=== PATIENT | male | born 1990 | race Caucasian/White ===

== ENCOUNTER 2017-06-04 18:12 | Emergency (ER) | payer SELFPAY ==
[2017-06-04] MEDS ORDERED: Ketorolac INJ* 30 MG/ML 1 ML VIAL IM ONE (20:35)
[2017-06-04] MEDS ORDERED: Cyclobenzaprine TAB* 10 MG PO ONE (20:36)
--- NOTE | 2017-06-04 21:17 | UC ---
Epi Bolivar Stephanie, scribed for Taniya Salgado MD on 06/04/17 at 2042 . Back Pain HPI - HPI Summary HPI Summary: The pt is a 27 y/o M presenting to with lower back pain that began yesterday at 06/03/17 s/p lifting heavy boxes (50-60 lbs) while at work. Pt was bending at his waist and stood up straight when he picked up the box. Pt feels muscles tightening when sitting. Pain is discrete at the lower back and is described as sharp and as an ache. No radiation no leg pain. No changes to bowel or bladder. The pt denies fever, chills, nausea, gluteal pain, vomiting, changes in BM and changes in sensation. The pain does not radiate into the lower extremities. Aggravating factors include change in position. The pt has never been treated for back pain. Took Motrin this morning Pt's medications reviewed at this visit - History of Current Complaint Chief Complaint: UCBackPain Stated Complaint: INJURED TAILBONE WC Time Seen by Provider: 06/04/17 20:10 Hx Obtained From: Patient Onset/Duration: Sudden Onset - post lifting heavy boxes, Lasting Days - 1, Still Present Timing: Constant Pain Intensity: 5 Pain Scale Used: 0-10 Numeric Back Pain: Is Discrete @ - lower back/tailbone Character: Sharp, Aching Aggravating Factor(s): Movement, Lifting, Bending, Walking Alleviating Factor(s): Nothing Associated Signs And Symptoms: Negative: Fever, Bowel Incontinence - Allergies/Home Medications Allergies/Adverse Reactions: Allergies Allergy/AdvReac Type Severity Reaction Status Date / Time No Known Allergies Allergy Verified 06/04/17 18:47 PMH/Surg Hx/FS Hx/Imm Hx Previously Healthy: Yes - Pt denies all past medical history - Surgical History Surgical History: None - Family History Known Family History: Positive: Unknown - The pt denies all family history when asked. - Social History Occupation: Employed Part-time Lives: With Family Alcohol Use: None Substance Use Type: None Smoking Status (MU): Light Every Day Tobacco Smoker Type: Cigars Review of Systems Constitutional: Negative Musculoskeletal: Other: - lower back pain All Other Systems Reviewed And Are Negative: Yes Physical Exam Triage Information Reviewed: Yes Appearance: Well-Nourished, Pain Distress - discomfort with movement Vital Signs: Initial Vital Signs Temp 98.5 F 06/04/17 18:48 Pulse 80 06/04/17 18:48 Resp 16 06/04/17 18:48 BP 120/74 06/04/17 18:48 Pulse Ox 100 06/04/17 18:48 Vital Signs Reviewed: Yes Eye Exam: Normal Eyes: Positive: Conjunctiva Clear ENT Exam: Normal ENT: Positive: Normal ENT inspection, Hearing grossly normal, TMs normal Dental Exam: Normal Neck exam: Normal Neck: Positive: Supple, Nontender, No Lymphadenopathy Respiratory Exam: Normal Respiratory: Positive: Chest non-tender, Lungs clear, Normal breath sounds, No respiratory distress, No accessory muscle use Cardiovascular Exam: Normal Cardiovascular: Positive: RRR, No Murmur Abdominal Exam: Normal Abdomen Description: Positive: Nontender, No Organomegaly, Soft Musculoskeletal: Positive: Other: - no pain c/t/l/s spinous process + point tenderness paraspinal right mid lumbar region no crepitus + SLE b/l LE + flex/ ext knee, ankle discomfort increases mid lumbar right with extension right knee Neurological Exam: Normal Neurological: Positive: Alert, Other: - + gross sensation throughout 2+ patellar reflex b/l without clonus Skin Exam: Normal Diagnostics - Radiology Lumbar Spine XRay Xray Interpretation: No Acute Changes Radiology Interpretation Completed By: Radiologist - No radiographic evidence of acute fracture or dislocation. Re-Evaluation - Re-Evaluation First Eval Re-Evaluation Time: 21:39 Change: Unchanged - Lumbar Spine Xray reveals no evidence of fracture. Back Pain Course/Dx - Course Course Of Treatment: Pt with right paraspinal lumbar pain s/p lifting object at work yesterday. Pt with point tenderness without radiation and CSM intact. Will check imaging although anticipate neg. Will give flexeril toradol. heat. stretch. work note. WC paperwork. PCP referral. return precautions. Pt here with S0 - able to drive following flexeril - Differential Dx/Diagnosis Provider Diagnoses: lumbar strain. muscle spasm Discharge - Discharge Plan Condition: Stable Disposition: HOME Prescriptions: Cyclobenzaprine TAB* [Flexeril 10 MG TAB*] 10 mg PO Q12HR PRN #10 tab PRN Reason: Spasms Patient Education Materials: Acute Low Back Pain (ED), Lower Back Exercises (ED ) Forms: *Work Release Referrals: [facility] [Outside] Daisy Borges MD [Medical Doctor] - Additional Instructions: - Okay to alternate ibuprofen (Advil, Motrin) 600mg and Tylenol every 3hours as needed for pain. Take with food. Do NOT take for more than 4-5 days. This medication may cause constipation -Take flexeril - muscle relaxer as prescribed. Do NOT drive, operate machinery or drink alcohol while taking Almyra. -Apply moist heat to your back for 20 minutes at a time, 4-5 times a day. Once your muscles are warm, slow gentle stretching exercises are important -Contact the physician referral center as well as Dr. Borges's office to schedule a follow-up appointment -If you pain is uncontrolled or you develop changes to your bowel or bladder control - go to an emergency department for further treatment The documentation as recorded by the Epi kruger Stephanie accurately reflects the service I personally performed and the decisions made by me, Taniya Salgado MD.
--- NOTE | 2017-06-04 21:35 | RAD ---
INDICATION: Low back pain after lifting injury COMPARISON: None. TECHNIQUE: 3 views of the lumbar spine were obtained. FINDINGS: On the AP view there is a small degree of levoconvex curvature of the thoracic or lumbar junction and a slight degree of dextroconvex curvature at the lower lumbar spine. The vertebral bodies are anatomically aligned in the sagittal plane. No fracture is seen. Disc spaces appear maintained. IMPRESSION: No radiographic evidence of acute fracture or dislocation.
[2017-06-04 22:12] VITALS: BP 134/79
== END 2017-06-04 21:55 | disposition home or self-care (01) ==
LOC: UCEAST 18:12
DX: S39.012A Strain of muscle, fascia and tendon of lower back, initial encounter (principal); X50.0XXA Overexertion from strenuous movement or load, initial encounter; Y93.89 Activity, other specified; Y92.89 Other specified places as the place of occurrence of the external cause; Y99.0 Civilian activity done for income or pay; M62.830 Muscle spasm of back; F17.290 Nicotine dependence, other tobacco product, uncomplicated
CPT/HCPCS: 72100; 99202; A9270-GY; G0463; J1885

== ENCOUNTER 2018-09-02 08:48 | Emergency (ER) | payer OTHER ==
[2018-09-02 09:07] VITALS: BP 142/96
[2018-09-02] MEDS ORDERED: Tetan/Diph/Pertus SYR(Tdap)* 0.5 ML SYR(BOOSTRIX) use SYR IM ONE (09:44)
--- NOTE | 2018-09-02 10:50 | UC ---
Laceration HPI - HPI Summary HPI Summary: 28 yo male presents with right middle laceration. He tells me that this morning around 0330 he was working at [employer] and was cutting open a zip-tie with a razor and accidentally sliced his right middle finger. He bandaged the area. Unsure date of last tetanus. - History Of Current Complaint Chief Complaint: UCLaceration Stated Complaint: FINGER LAC Time Seen by Provider: 09/02/18 09:51 Hx Obtained From: Patient Laceration Location: Finger Mechanism Of Injury: Sharp Trauma Onset/Duration: Sudden Onset Severity: Moderate Pain Intensity: 7 Pain Scale Used: 0-10 Numeric - Allergies/Home Medications Allergies/Adverse Reactions: Allergies Allergy/AdvReac Type Severity Reaction Status Date / Time No Known Allergies Allergy Verified 09/02/18 08:59 Home Medications: Home Medications NK [No Home Medications Reported] 09/02/18 [History Confirmed 09/02/18] PMH/Surg Hx/FS Hx/Imm Hx - Additional Past Medical History Additional PMH: None - Surgical History Surgical History: None - Family History Known Family History: Positive: None - Social History Occupation: Employed Full-time Lives: With Family Alcohol Use: None Substance Use Type: None Smoking Status (MU): Light Every Day Tobacco Smoker Type: Cigarettes Amount Used/How Often: 4 cig/ day Household Exposure Type: Cigarettes Review of Systems All Other Systems Reviewed And Are Negative: Yes Constitutional: Positive: Negative Skin: Positive: Other - Laceration right middle finger Respiratory: Positive: Negative Cardiovascular: Positive: Negative Neurological: Positive: Negative Psychological: Positive: Negative Physical Exam - Summary Physical Exam Summary: GENERAL: NAD. WDWN. No pain distress. SKIN: RIGHT MIDDLE FINGER: Fingertip with 5mm linear superficial laceration horizontal from radial aspect onto fingernail. Well approximated at rest. Scant bleeding. Clean wound without FB. CHEST: No accessory muscle use. Breathing comfortably and in no distress. CV: Pulses intact. Cap refill <2seconds NEURO: Alert. PSYCH: Age appropriate behavior. Triage Information Reviewed: Yes Vital Signs: Initial Vital Signs Temp 99.3 F 09/02/18 08:59 Pulse 86 09/02/18 08:59 Resp 16 09/02/18 08:59 BP 142/96 09/02/18 08:59 Pulse Ox 99 09/02/18 08:59 Vital Signs Reviewed: Yes Laceration Repair - Laceration Repair 1 Description: Linear Laceration Size After Repair: Length (cm) - 0.5 Modified For Repair: No Closure Material: Skin Adhesive Closure Method: Single Layer Laceration Course/Dx - Course/Dx Course Of Treatment: The wound was cleansed with NS. Dermabond applied and wound brought to good approximation. Bandaged with a band-aid. tdap updated today. - Diagnosis Provider Diagnosis: Laceration of right middle finger Discharge - Sign-Out/Discharge Documenting (check all that apply): Patient Departure All imaging exams completed and their final reports reviewed: No Studies - Discharge Plan Condition: Stable Disposition: HOME Patient Education Materials: Skin Adhesive Care (ED) Referrals: No Primary Care Phys,NOPCP [Primary Care Provider] - - Billing Disposition and Condition Condition: STABLE Disposition: Home
== END 2018-09-02 10:13 | disposition home or self-care (01) ==
LOC: UCEAST 08:48
DX: S61.212A Laceration without foreign body of right middle finger without damage to nail, initial encounter (principal); W26.8XXA Contact with other sharp object(s), not elsewhere classified, initial encounter; Y92.512 Supermarket, store or market as the place of occurrence of the external cause; Y99.0 Civilian activity done for income or pay; F17.210 Nicotine dependence, cigarettes, uncomplicated; Z23 Encounter for immunization
CPT/HCPCS: 12001; 90471; 90715; 99211; G0463